=== PATIENT | male | born 1975 | race Caucasian/White ===

== ENCOUNTER 2016-12-14 11:31 | Outpatient (CLI) | payer MEDICAID | END 2016-12-14 11:32 | disposition home or self-care (01) | DX: S06.9X9S Unspecified intracranial injury with loss of consciousness of unspecified duration, sequela (principal) ==

== ENCOUNTER 2024-01-20 08:49 | Emergency (ER) | payer OTHER ==
[2024-01-20 09:09] VITALS: BP 150/86; O2SAT 98
--- NOTE | 2024-01-20 09:54 | XRAY Report ---
PROCEDURE: Foot 3+V RT INDICATIONS: fall pain in proximal 5th. TECHNIQUE: 3 views of the foot were obtained. COMPARISON: None FINDINGS: Bones: No fractures or dislocations. No suspicious bony lesions. Soft tissues: Unremarkable. No radiopaque foreign body. IMPRESSION: Normal foot radiographs Reviewed by: Greg Duncan MD on 01/20/2024 8:52 AM [facility] Approved by: Greg Duncan MD on 01/20/2024 8:52 AM [facility] Station ID: [id number]
--- NOTE | 2024-01-20 10:03 | ED Physician Documentation ---
PD HPI LOWER EXT INJURY - Stated complaint Stated Complaint: RT FT INJ - Chief complaint Chief Complaint: Trauma Ext - History obtained from History obtained from: Patient, Family - History of Present Illness PD HPI LOW EXT INJURY LOCATION: Right, Foot Type of injury: Fall Where injury occurred: Home Timing - onset: Yesterday Timing - duration: Days (1) Timing - details: Abrupt onset, Still present Improved by: Rest, Immobilization Worsened by: Moving, Palpating Associated symptoms: No: Weakness, Numbness, Tingling, Swelling Contributing factors: No: Anticoagulated Similar symptoms before: Has not had sx before Recently seen: Not recently seen - Additional information Additional information: 48-year-old Selvin Gonsalez Was on a ladder stapling some bird repellent ribbon to the fascia above his window. He was on a ladder he bent to the side to staple and edge the ladder fell out from underneath him and he fell onto the ground. The ladder was on a deck. He was able to walk back inside of his house and began to experience pain in his right foot the pain peaked in the middle of the night and the patient has had difficulty walking. He presents now with right foot pain after a fall. He denies injury otherwise. He denies injury to his head, denies problems with his knee or hip on that right side. Review of Systems Constitutional: denies: Fever Ears: denies: Ear pain Nose: denies: Congestion Throat: denies: Sore throat Respiratory: denies: Cough GI: denies: Vomiting PD PAST MEDICAL HISTORY - Past Medical History Past Medical History: Yes Cardiovascular: None Respiratory: None Neuro: Head injury Endocrine/Autoimmune: None GI: None : None HEENT: None Psych: None Musculoskeletal: None - Past Surgical History Past Surgical History: Yes Neuro: Other - Present Medications Home Medications: Ambulatory Orders Medication Instructions Recorded Confirmed No Known Home Medications 01/20/24 01/20/24 - Allergies Allergies/Adverse Reactions: Allergies Allergy/AdvReac Type Severity Reaction Status Date / Time morphine AdvReac Nausea Verified 01/20/24 08:53 - Social History Does the pt smoke?: No Smoking Status: Never smoker Does the pt drink ETOH?: Yes ETOH Use: Beer Does the pt have substance abuse?: Yes Substance Use and Type: Marijuana - Immunizations Immunizations are current?: No Immunizations: TDAP >10years/unknown - POLST Patient has POLST: No PD ED PE NORMAL - Vitals Vital signs reviewed: Yes (hpyertensive ) - General General: Alert and oriented X 3, No acute distress, Well developed/nourished - HEENT HEENT: Atraumatic, PERRL, EOMI - Respiratory Respiratory: No respiratory distress - Derm Derm: Normal color, Warm and dry, No rash - Extremities Extremities: No deformity, No edema, Other (There is specific tenderness to the right proximal fifth metatarsal. There is no tenderness or swelling to the ankle joint the knee joint or the hip. There is no swelling to the foot. 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 coordinator 2-12 intact, No motor deficit, No sensory deficit, Normal speech Eye Opening: Spontaneous Motor: Obeys Commands Verbal: Oriented GCS Score: 15 - Psych Psych: Normal mood, Normal affect Results - Vitals Vitals: Vital Signs - 24 hr 01/20/24 08:54 Temperature 36.8 C Heart Rate 97 Respiratory 16 Rate Blood Pressure 150/86 H O2 Saturation 98 Oxygen O2 Source Room air - Rads (name of study) foot R Relevant Findings:: Prelim report reviewed (Impression: Normal foot radiographs.), EMP independent interpretation of test PD Medical Decision Making - ED course Complexity details: considered differential, d/w patient, d/w family ED course: 48-year-old Selvin Gonsalez is fallen off of a ladder and has pain to the proximal fifth metatarsal on the right foot. His fall was far enough to cause a fracture and we took an x-ray of the foot fully expecting to find a fracture. We did not find a fracture. We have placed the patient into a walking boot and we are expecting healing within 1 to 2 weeks. Departure - Departure Disposition: 01 Home, Self Care Clinical Impression: Sprain of right foot Qualifiers: Encounter type: initial encounter Qualified Code(s): S93.601A - Unspecified sprain of right foot, initial encounter Condition: Stable Instructions: ED Sprain Foot Follow-Up: Bridger Frye MD [Provider Admit Priv/Credential] - Comments: Selvin, today it looks like you have sprained your right foot. This will usually take 1 to 2 weeks to heal up and we have given you a walking boot for comfort. The recommendation is to ice this and elevated slowly begin weightbearing as tolerated. I have given you the name of a orthopedic doctor to follow-up with if you are not having adequate progression in your improvement Forms: PCP List, Activity restrictions
[2024-01-20] MEDS: IBUPROFEN 600 MG TABLET PO STA (10:18)
== END 2024-01-20 10:23 | disposition home or self-care (01) ==
LOC: ED 08:49
DX: S93.601A Unspecified sprain of right foot, initial encounter (principal); W11.XXXA Fall on and from ladder, initial encounter
CPT/HCPCS: 73630; 99283; A9270